=== PATIENT | female | born 2000 | race Hispanic/Latino ===

== ENCOUNTER 2022-06-09 23:16 | Emergency (ER) | payer SELFPAY ==
--- OUTSIDE RECORDS SUMMARY | 2022-06-09 23:20 | XMS REPORT | Continuity of Care Document ---
:[address] [facility] t Address [address] [place] [place] [address] Care Team Providers Name Role Phone Slim Brady Primary Care Physician [phone] Problems This patient has no known problems. Allergies, Adverse Reactions, Alerts This patient has no known allergies or adverse reactions. Medications Ordered Filled Start Stop Current Ordering Indication Dosage Frequency Signature Comments Components Source Medication Medication Date Date Medication? Clinician (SIG) Name Name Dose 2021-07 No Unknown 0-12 00:00: 00 Dose 2021-1 No Unknown 0-12 00:00: 00 Dose 2021-1 No Unknown 0-12 00:00: 00 Dose 2021-1 No Unknown 0-12 00:00: 00 Dose 2021-0 No Unknown 6-21 00:00: 00 Dose 2021-0 No Unknown 6-21 00:00: 00 Dose 2021-0 No Unknown 6-21 00:00: 00 Dose 2021-0 No Unknown 6-21 00:00: 00 Dose 2021-0 No Unknown 6-21 00:00: 00 doxycycline 2-0 No 1mg monohydrate 6-21 100 mg 00:00: capsule 00 Dose 2021-0 No Unknown 6-21 00:00: 00 doxycycline 2-0 No 1mg monohydrate 6-21 100 mg 00:00: capsule 00 Dose 2-0 No Unknown 6-21 00:00: 00 Dose 2-0 No Unknown 6-21 00:00: 00 Dose 2-0 No Unknown 6-21 00:00: 00 Dose 2021-0 No Unknown 6-21 00:00: 00 mupirocin 2 2021-0 No 1% % topical 5-25 ointment 00:00: 00 ketorolac 2-0 No 1mg 10 mg 5-25 tablet 00:00: 00 mupirocin 2 2-0 No 1% % topical 5-25 ointment 00:00: 00 ketorolac 2-0 No 1mg 10 mg 5-25 tablet 00:00: 00 sulfamethox 2-0 No 1mg azole 800 5-24 mg-trimetho 00:00: prim 160 mg 00 tablet sulfamethox 2-0 No 1mg azole 800 5-24 mg-trimetho 00:00: prim 160 mg 00 tablet Dose 2-0 No Unknown 5-24 00:00: 00 sulfamethox 2-0 No 1mg azole 800 5-24 mg-trimetho 00:00: prim 160 mg 00 tablet sulfamethox 2-0 No 1mg azole 800 5-24 mg-trimetho 00:00: prim 160 mg 00 tablet Dose 2-0 No Unknown 5-24 00:00: 00 ProAir HFA 1-0 No 12mcg/a 90 3-23 ctuatio mcg/actuati 00:00: n on aerosol 00 inhaler ProAir HFA 1-0 No 12mcg/a 90 3-23 ctuatio mcg/actuati 00:00: n on aerosol 00 inhaler loratadine 1-0 No 1mg 10 mg 3-23 tablet 00:00: 00 loratadine 1-0 No 1mg 10 mg 3-23 tablet 00:00: 00 ProAir HFA 1-0 No 12mcg/a 90 3-23 ctuatio mcg/actuati 00:00: n on aerosol 00 inhaler ProAir HFA 1-0 No 12mcg/a 90 3-23 ctuatio mcg/actuati 00:00: n on aerosol 00 inhaler loratadine 1-0 No 1mg 10 mg 3-23 tablet 00:00: 00 loratadine 1-0 No 1mg 10 mg 3-23 tablet 00:00: 00 Debrox 6.5 2019-0 No 5% % ear drops 2-26 00:00: 00 amoxicillin 2020-0 No 1mg 875 2-26 mg-potassiu 00:00: m 00 clavulanate 125 mg tablet Bromfed DM 2020-0 No 10mg/5 2 mg-30 2-26 mL mg-10 mg/5 00:00: mL oral 00 syrup Debrox 6.5 2019-0 No 5% % ear drops 2-26 00:00: 00 amoxicillin 2019-0 No 1mg 875 2-26 mg-potassiu 00:00: m 00 clavulanate 125 mg tablet Bromfed DM 2019-0 No 10mg/5 2 mg-30 2-26 mL mg-10 mg/5 00:00: mL oral 00 syrup Immunizations Ordered Immunization Filled Immunization Date Status Commen ts Source Name Name Adriane HYATT-Mikey 2020-08-27 Completed Vaccine 00:00:00 Adriane MCKEONID-Mikey 2020-08-27 Completed Vaccine 00:00:00 Adriane MCKEONID-19 2020-07-29 Completed Vaccine 00:00:00 Adriane MCKEONID-19 2020-07-29 Completed Vaccine 00:00:00 Vital Signs Vital Name Observation Time Observation Value Comments Source BP Systolic 2022-05-17 09:26:00 120 mm[Hg] BP Diastolic 2022-05-17 09:26:00 86 mm[Hg] Weight Measured 2022-05-17 09:26:00 181.20 pounds Height Measured 2022-05-17 09:26:00 62.00 inches Body Temperature 2022-05-17 09:26:00 97.80 degrees Heart Rate 2022-05-17 09:26:00 61.00 /min Respiratory Rate 2022-05-17 09:26:00 BP Systolic 2022-05-10 19:39:00 130 mm[Hg] BP Diastolic 2022-05-10 19:39:00 81 mm[Hg] Weight Measured 2022-05-10 19:39:00 183.40 pounds Height Measured 2022-05-10 19:39:00 62.00 inches Body Temperature 2022-05-10 19:39:00 97.70 degrees Heart Rate 2022-05-10 19:39:00 77.00 /min Respiratory Rate 2022-05-10 19:39:00 BP Systolic 2022-01-17 14:15:00 119 mm[Hg] BP Diastolic 2022-01-17 14:15:00 78 mm[Hg] Weight Measured 2022-01-17 14:15:00 177.40 pounds Height Measured 2022-01-17 14:15:00 62.00 inches Body Temperature 2022-01-17 14:15:00 98.10 degrees Heart Rate 2022-01-17 14:15:00 63.00 /min Respiratory Rate 2022-01-17 14:15:00 17.00 /min BP Systolic 2021-12-21 14:24:00 117 mm[Hg] BP Diastolic 2021-12-21 14:24:00 76 mm[Hg] Weight Measured 2021-12-21 14:24:00 179.20 pounds Height Measured 2021-12-21 14:24:00 62.00 inches Body Temperature 2021-12-21 14:24:00 98.20 degrees Heart Rate 2021-12-21 14:24:00 80.00 /min Respiratory Rate 2021-12-21 14:24:00 18.00 /min BP Systolic 2021-12-20 09:08:00 125 mm[Hg] BP Diastolic 2021-12-20 09:08:00 85 mm[Hg] Weight Measured 2021-12-20 09:08:00 177.00 pounds Height Measured 2021-12-20 09:08:00 62.00 inches Body Temperature 2021-12-20 09:08:00 98.20 degrees Heart Rate 2021-12-20 09:08:00 65.00 /min Respiratory Rate 2021-12-20 09:08:00 BP Systolic 2021-10-12 09:10:00 BP Diastolic 2021-10-12 09:10:00 Weight Measured 2021-10-12 09:10:00 180.00 pounds Height Measured 2021-10-12 09:10:00 62.00 inches Body Temperature 2021-10-12 09:10:00 Heart Rate 2021-10-12 09:10:00 Respiratory Rate 2021-10-12 09:10:00 BP Systolic 2021-07-22 09:21:00 BP Diastolic 2021-07-22 09:21:00 Weight Measured 2021-07-22 09:21:00 180.00 pounds Height Measured 2021-07-22 09:21:00 62.00 inches Body Temperature 2021-07-22 09:21:00 Heart Rate 2021-07-22 09:21:00 Respiratory Rate 2021-07-22 09:21:00 BP Systolic 2020-05-27 10:44:00 120 mm[Hg] BP Diastolic 2020-05-27 10:44:00 77 mm[Hg] Weight Measured 2020-05-27 10:44:00 199.40 pounds Height Measured 2020-05-27 10:44:00 62.00 inches Body Temperature 2020-05-27 10:44:00 96.90 degrees Heart Rate 2020-05-27 10:44:00 81.00 /min Respiratory Rate 2020-05-27 10:44:00 16.00 /min Heart Rate 2019-09-24 08:43:00 63.00 /min Respiratory Rate 2019-09-24 08:43:00 16.00 /min BP Systolic 2019-09-24 08:43:00 120 mm[Hg] BP Diastolic 2019-09-24 08:43:00 80 mm[Hg] Weight Measured 2019-09-24 08:43:00 191.40 pounds Height Measured 2019-09-24 08:43:00 62.00 inches Body Temperature 2019-09-24 08:43:00 98.00 degrees BP Systolic 2019-08-04 13:58:00 BP Diastolic 2019-08-04 13:58:00 Weight Measured 2019-08-04 13:58:00 192.40 pounds Height Measured 2019-08-04 13:58:00 62.00 inches Body Temperature 2019-08-04 13:58:00 97.50 degrees Heart Rate 2019-08-04 13:58:00 71.00 /min Respiratory Rate 2019-08-04 13:58:00 16.00 /min BP Systolic 2019-07-10 09:56:00 124 mm[Hg] BP Diastolic 2019-07-10 09:56:00 76 mm[Hg] Weight Measured 2019-07-10 09:56:00 192.00 pounds Height Measured 2019-07-10 09:56:00 62.00 inches Body Temperature 2019-07-10 09:56:00 98.40 degrees Heart Rate 2019-07-10 09:56:00 56.00 /min Respiratory Rate 2019-07-10 09:56:00 17.00 /min Procedures Procedure Date / Time Performed Performing Clinician Sourc e Ear Lavage 2019-09-24 00:00:00 Plan of Care Planned Activity Planned Date Details Comments Source Goal Plan of Care Note [code = 28574-8] Goal Plan of Care Note [code = 46671-0] Goal Plan of Care Note [code = 64340-0] Goal Plan of Care Note [code = 58035-9] Goal Plan of Care Note [code = 94103-2] Goal Plan of Care Note [code = 42467-8] Goal Plan of Care Note [code = 84953-2] Goal Plan of Care Note [code = 74824-1] Goal Plan of Care Note [code = 30988-6] Goal Plan of Care Note [code = 56421-8] Goal Plan of Care Note [code = 91269-6] Goal Plan of Care Note [code = 91197-8] Goal Plan of Care Note [code = 91745-9] Goal Plan of Care Note [code = 37995-7] Goal Plan of Care Note [code = 02579-8] Goal Plan of Care Note [code = 01066-9] Goal Plan of Care Note [code = 66214-0] Goal Plan of Care Note [code = 52543-0] Goal Plan of Care Note [code = 65860-3] Goal Plan of Care Note [code = 53865-3] Goal Plan of Care Note [code = 83214-8] Goal Plan of Care Note [code = 97934-2] Goal Plan of Care Note [code = 37743-2] Goal Plan of Care Note [code = 21850-6] Goal Plan of Care Note [code = 20373-8] Goal Plan of Care Note [code = 96571-6] Goal Plan of Care Note [code = 33709-4] Goal Plan of Care Note [code = 51449-9] Goal Plan of Care Note [code = 08133-2] Goal Plan of Care Note [code = 14636-3] Goal Plan of Care Note [code = 45314-8] Goal Plan of Care Note [code = 54231-5] Goal Plan of Care Note [code = 76247-8] Goal Plan of Care Note [code = 96598-9] Goal Plan of Care Note [code = 49391-4] Goal Plan of Care Note [code = 53176-4] Goal Plan of Care Note [code = 68085-4] Goal Plan of Care Note [code = 09933-5] Goal Plan of Care Note [code = 09631-8] Encounters Start End Encounter Admission Attending Care Care Encounter Source Date/Time Date/Time Type Type Clinicians Facility Department ID 2022-05-17 2022-05-17 Outpatient [facility] [id number] Arik 09:13:48 09:13:48 1019 F sIaiah 2022-05-17 2022-05-17 Outpatient [id number]- [id number] id [id number] 00:00:00 00:00:00 Visit [id number] 2022-05-10 Outpatient [facility] [id number] Arik 17:18:43 17:18:43 1012 F Isaiah 2022-05-10 2022-05-10 Outpatient [id number] 00:00:00 00:00:00 Visit [id number] Results Test Description Test Time Test Comments Results Result Comments Source LIVER (HEPATIC) FUNCTION PANEL 2019-08-05 00:00:00 Test Item Value Reference Range Interpretation Comme nts PROTEIN, TOTAL (test code = 2229) 7.6 G/DL ALBUMIN (test code = 2201) 4.9 G/DL BILIRUBIN, TOTAL (test code = 2207) 0.4 MG/DL BILIRUBIN, DIRECT (test code = 2021) 0.1 MG/DL ALKALINE PHOSPHATASE (test code = 2204) 100 U/L AST (test code = 2218) 31 U/L ALT (test code = 2219) 74 U/L LIVER (HEPATIC) FUNCTION [id number] 00:00:00 Test Item Value Reference Range Interpretation Comments PROTEIN, TOTAL (test code = 2229) 7.6 G/DL ALBUMIN (test code = 2201) 4.9 G/DL BILIRUBIN, TOTAL (test code = 2207) 0.4 MG/DL BILIRUBIN, DIRECT (test code = 0.1 MG/DL 2021) ALKALINE PHOSPHATASE (test code = 100 U/L 2204) AST (test code = 2218) 31 U/L ALT (test code = 2219) 74 U/L LIVER (HEPATIC) FUNCTION [id number] 00:00:00 Test Item Value Reference Range Interpretation Comments PROTEIN, TOTAL (test code = 2229) 7.6 G/DL ALBUMIN (test code = 2201) 4.9 G/DL BILIRUBIN, TOTAL (test code = 2207) 0.4 MG/DL BILIRUBIN, DIRECT (test code = 0.1 MG/DL 2021) ALKALINE PHOSPHATASE (test code = 100 U/L 220) AST (test code = 2218) 31 U/L ALT (test code = 2219) 74 U/L LIVER (HEPATIC) FUNCTION [id number] 00:00:00 Test Item Value Reference Range Interpretation Comments PROTEIN, TOTAL (test code = 2229) 7.6 G/DL ALBUMIN (test code = 2201) 4.9 G/DL BILIRUBIN, TOTAL (test code = 2207) 0.4 MG/DL BILIRUBIN, DIRECT (test code = 0.1 MG/DL 2021) ALKALINE PHOSPHATASE (test code = 100 U/L 2203) AST (test code = 2218) 31 U/L ALT (test code = 2219) 74 U/L LIVER (HEPATIC) FUNCTION [id number] 00:00:00 Test Item Value Reference Range Interpretation Comments PROTEIN, TOTAL (test code = 2229) 7.5 G/DL ALBUMIN (test code = 2201) 4.9 G/DL BILIRUBIN, TOTAL (test code = 2207) 0.5 MG/DL BILIRUBIN, DIRECT (test code = 0.1 MG/DL 2021) ALKALINE PHOSPHATASE (test code = 97 U/L 2203) AST (test code = 2218) 27 U/L ALT (test code = 2219) 69 U/L LIVER (HEPATIC) FUNCTION [id number] 00:00:00 Test Item Value Reference Range Interpretation Comments PROTEIN, TOTAL (test code = 2229) 7.5 G/DL ALBUMIN (test code = 2201) 4.9 G/DL BILIRUBIN, TOTAL (test code = 2207) 0.5 MG/DL BILIRUBIN, DIRECT (test code = 0.1 MG/DL 2021) ALKALINE PHOSPHATASE (test code = 97 U/L 2203) AST (test code = 2218) 27 U/L ALT (test code = 2219) 69 U/L LIVER (HEPATIC) FUNCTION [id number] 00:00:00 Test Item Value Reference Range Interpretation Comments PROTEIN, TOTAL (test code = 2229) 7.5 G/DL ALBUMIN (test code = 2201) 4.9 G/DL BILIRUBIN, TOTAL (test code = 2207) 0.5 MG/DL BILIRUBIN, DIRECT (test code = 0.1 MG/DL 2021) ALKALINE PHOSPHATASE (test code = 97 U/L 2203) AST (test code = 2218) 27 U/L ALT (test code = 2219) 69 U/L LIVER (HEPATIC) FUNCTION [id number] 00:00:00 Test Item Value Reference Range Interpretation Comments PROTEIN, TOTAL (test code = 2229) 7.5 G/DL ALBUMIN (test code = 2201) 4.9 G/DL BILIRUBIN, TOTAL (test code = 2207) 0.5 MG/DL BILIRUBIN, DIRECT (test code = 0.1 MG/DL 2021) ALKALINE PHOSPHATASE (test code = 97 U/L 2203) AST (test code = 2218) 27 U/L ALT (test code = 2219) 69 U/L COMPREHENSIVE METABOLIC [id number] 00:00:00 Test Item Value Reference Range Interpretation Comments GLUCOSE (test code = 2217) 109 MG/DL BUN (test code = 2208) 13 MG/DL CREATININE (test code = 2214) 0.60 MG/DL eGFR AMER. (test code 154 ML/MIN/1.73 = 44539) eGFR NON- AMER. (test 133 ML/MIN/1.73 code = 15449) CALC BUN/CREAT (test code = 22 RATIO 2235) SODIUM (test code = 2231) 141 MEQ/L POTASSIUM (test code = 2228) 4.4 MEQ/L CHLORIDE (test code = 2215) 103 MEQ/L CARBON DIOXIDE (test code = 25 MEQ/L 2205) CALCIUM (test code = 2209) 10.3 MG/DL PROTEIN, TOTAL (test code = 8.0 G/DL 2228) ALBUMIN (test code = 2201) 5.5 G/DL CALC GLOBULIN (test code = 2.5 G/DL 2239) CALC A/G RATIO (test code = 2.2 RATIO 2234) BILIRUBIN, TOTAL (test code = 0.3 MG/DL 2206) ALKALINE PHOSPHATASE (test 102 U/L code = 2204) AST (test code = 2218) 36 U/L ALT (test code = 2219) 86 U/L COMPREHENSIVE METABOLIC [id number] 00:00:00 Test Item Value Reference Range Interpretation Comments GLUCOSE (test code = 2217) 109 MG/DL BUN (test code = 2208) 13 MG/DL CREATININE (test code = 2214) 0.60 MG/DL eGFR AMER. (test code 154 ML/MIN/1.73 = 74447) eGFR NON- AMER. (test 133 ML/MIN/1.73 code = 76081) CALC BUN/CREAT (test code = 22 RATIO 2235) SODIUM (test code = 2231) 141 MEQ/L POTASSIUM (test code = 2228) 4.4 MEQ/L CHLORIDE (test code = 2215) 103 MEQ/L CARBON DIOXIDE (test code = 25 MEQ/L 2205) CALCIUM (test code = 2209) 10.3 MG/DL PROTEIN, TOTAL (test code = 8.0 G/DL 2228) ALBUMIN (test code = 2201) 5.5 G/DL CALC GLOBULIN (test code = 2.5 G/DL 2240) CALC A/G RATIO (test code = 2.2 RATIO 2234) BILIRUBIN, TOTAL (test code = 0.3 MG/DL 2206) ALKALINE PHOSPHATASE (test 102 U/L code = 2204) AST (test code = 2218) 36 U/L ALT (test code = 2219) 86 U/L LIPID [id number] 00:00:00 Test Item Value Reference Range Interpretation Comments CHOLESTEROL (test code = 2210) 211 MG/DL TRIGLYCERIDES (test code = 2232) 143 MG/DL HDL CHOLESTEROL (test code = 2220) 35 MG/DL CALC LDL CHOL (test code = 2237) 147 MG/DL RISK RATIO LDL/HDL (test code = 4.21 RATIO 2238) LIPID [id number] 00:00:00 Test Item Value Reference Range Interpretation Comments CHOLESTEROL (test code = 2210) 211 MG/DL TRIGLYCERIDES (test code = 2232) 143 MG/DL HDL CHOLESTEROL (test code = 2220) 35 MG/DL CALC LDL CHOL (test code = 2237) 147 MG/DL RISK RATIO LDL/HDL (test code = 4.21 RATIO 2238) CBC W/AUTO [id number] 00:00:00 Test Item Value Reference Range Interpretation Comments WBC (test code = 1001) 6.1 K/UL RBC (test code = 1002) 5.15 M/UL HEMOGLOBIN (test code = 1003) 15.1 G/DL HEMATOCRIT (test code = 1004) 44.2 % MCV (test code = 1005) 85.8 fL MCH (test code = 1006) 29.3 PG MCHC (test code = 1007) 34.2 G/DL RDW (test code = 1038) 12.1 % NEUTROPHILS (test code = 1008) 58.6 % LYMPHOCYTES (test code = 1010) 31.0 % MONOCYTES (test code = 1011) 4.3 % EOSINOPHILS (test code = 1012) 5.6 % BASOPHILS (test code = 1013) 0.5 % PLATELET COUNT (test code = 1015) 308 K/UL CBC W/AUTO [id number] 00:00:00 Test Item Value Reference Range Interpretation Comments WBC (test code = 1001) 6.1 K/UL RBC (test code = 1002) 5.15 M/UL HEMOGLOBIN (test code = 1003) 15.1 G/DL HEMATOCRIT (test code = 1004) 44.2 % MCV (test code = 1005) 85.8 fL MCH (test code = 1006) 29.3 PG MCHC (test code = 1007) 34.2 G/DL RDW (test code = 1038) 12.1 % NEUTROPHILS (test code = 1008) 58.6 % LYMPHOCYTES (test code = 1010) 31.0 % MONOCYTES (test code = 1011) 4.3 % EOSINOPHILS (test code = 1012) 5.6 % BASOPHILS (test code = 1013) 0.5 % PLATELET COUNT (test code = 1015) 308 K/UL CBC W/AUTO [id number] 00:00:00 Test Item Value Reference Range Interpretation Comments WBC (test code = 1001) 6.1 K/UL RBC (test code = 1002) 5.15 M/UL HEMOGLOBIN (test code = 1003) 15.1 G/DL HEMATOCRIT (test code = 1004) 44.2 % MCV (test code = 1005) 85.8 fL MCH (test code = 1006) 29.3 PG MCHC (test code = 1007) 34.2 G/DL RDW (test code = 1038) 12.1 % NEUTROPHILS (test code = 1008) 58.6 % LYMPHOCYTES (test code = 1010) 31.0 % MONOCYTES (test code = 1011) 4.3 % EOSINOPHILS (test code = 1012) 5.6 % BASOPHILS (test code = 1013) 0.5 % PLATELET COUNT (test code = 1015) 308 K/UL HEMOGLOBIN [id number] 00:00:00 Test Item Value Reference Range Interpretation Comments HEMOGLOBIN A1c (test code = 63543) 5.6 % HEMOGLOBIN [id number] 00:00:00 Test Item Value Reference Range Interpretation Comments HEMOGLOBIN A1c (test code = 21332) 5.6 % HEMOGLOBIN [id number] 00:00:00 Test Item Value Reference Range Interpretation Comments HEMOGLOBIN A1c (test code = 24645) 5.6 % [id number] 00:00:00 Test Item Value Reference Range Interpretation Comments TSH, THIRD GENERATION (test code 3.170 UIU/ML = 2821) [id number] 00:00:00 Test Item Value Reference Range Interpretation Comments TSH, THIRD GENERATION (test code 3.170 UIU/ML = 2821) [id number] 00:00:00 Test Item Value Reference Range Interpretation Comments TSH, THIRD GENERATION (test code 3.170 UIU/ML = 2821) [id number] 00:00:00 Test Item Value Reference Range Interpretation Comments PROLACTIN (test code = 2800) 13.4 NG/ML [id number] 00:00:00 Test Item Value Reference Range Interpretation Comments PROLACTIN (test code = 2800) 13.4 NG/ML FSH + LH [id number] 00:00:00 Test Item Value Reference Range Interpretation Comments FOLLICLE STIM HORMONE (test code = 5.2 IU/L 2700) LUTEINIZING HORMONE (test code = 9.9 IU/L 2776) FSH + LH [id number] 00:00:00 Test Item Value Reference Range Interpretation Comments FOLLICLE STIM HORMONE (test code = 5.2 IU/L 2700) LUTEINIZING HORMONE (test code = 9.9 IU/L 2776) COMPREHENSIVE METABOLIC [id number] 00:00:00 Test Item Value Reference Range Interpretation Comments GLUCOSE (test code = 2217) 109 MG/DL BUN (test code = 2208) 13 MG/DL CREATININE (test code = 2214) 0.60 MG/DL eGFR AMER. (test code 154 ML/MIN/1.73 = 39295) eGFR NON- AMER. (test 133 ML/MIN/1.73 code = 31099) CALC BUN/CREAT (test code = 22 RATIO 2235) SODIUM (test code = 2231) 141 MEQ/L POTASSIUM (test code = 2228) 4.4 MEQ/L CHLORIDE (test code = 2215) 103 MEQ/L CARBON DIOXIDE (test code = 25 MEQ/L 2205) CALCIUM (test code = 2209) 10.3 MG/DL PROTEIN, TOTAL (test code = 8.0 G/DL 2228) ALBUMIN (test code = 2201) 5.5 G/DL CALC GLOBULIN (test code = 2.5 G/DL 2239) CALC A/G RATIO (test code = 2.2 RATIO 2234) BILIRUBIN, TOTAL (test code = 0.3 MG/DL 2206) ALKALINE PHOSPHATASE (test 102 U/L code = 2204) AST (test code = 2218) 36 U/L ALT (test code = 2219) 86 U/L COMPREHENSIVE METABOLIC [id number] 00:00:00 Test Item Value Reference Range Interpretation Comments GLUCOSE (test code = 2217) 109 MG/DL BUN (test code = 2208) 13 MG/DL CREATININE (test code = 2214) 0.60 MG/DL eGFR AMER. (test code 154 ML/MIN/1.73 = 68217) eGFR NON- AMER. (test 133 ML/MIN/1.73 code = 38854) CALC BUN/CREAT (test code = 22 RATIO 2235) SODIUM (test code = 2231) 141 MEQ/L POTASSIUM (test code = 2228) 4.4 MEQ/L CHLORIDE (test code = 2215) 103 MEQ/L CARBON DIOXIDE (test code = 25 MEQ/L 220) CALCIUM (test code = 2209) 10.3 MG/DL PROTEIN, TOTAL (test code = 8.0 G/DL 2228) ALBUMIN (test code = 2201) 5.5 G/DL CALC GLOBULIN (test code = 2.5 G/DL 2240) CALC A/G RATIO (test code = 2.2 RATIO 2234) BILIRUBIN, TOTAL (test code = 0.3 MG/DL 2206) ALKALINE PHOSPHATASE (test 102 U/L code = 2204) AST (test code = 2218) 36 U/L ALT (test code = 2219) 86 U/L LIPID [id number] 00:00:00 Test Item Value Reference Range Interpretation Comments CHOLESTEROL (test code = 2210) 211 MG/DL TRIGLYCERIDES (test code = 2232) 143 MG/DL HDL CHOLESTEROL (test code = 2220) 35 MG/DL CALC LDL CHOL (test code = 2237) 147 MG/DL RISK RATIO LDL/HDL (test code = 4.21 RATIO 2238) LIPID [id number] 00:00:00 Test Item Value Reference Range Interpretation Comments CHOLESTEROL (test code = 2210) 211 MG/DL TRIGLYCERIDES (test code = 2232) 143 MG/DL HDL CHOLESTEROL (test code = 2220) 35 MG/DL CALC LDL CHOL (test code = 2237) 147 MG/DL RISK RATIO LDL/HDL (test code = 4.21 RATIO 2238) CBC W/AUTO [id number] 00:00:00 Test Item Value Reference Range Interpretation Comments WBC (test code = 1001) 6.1 K/UL RBC (test code = 1002) 5.15 M/UL HEMOGLOBIN (test code = 1003) 15.1 G/DL HEMATOCRIT (test code = 1004) 44.2 % MCV (test code = 1005) 85.8 fL MCH (test code = 1006) 29.3 PG MCHC (test code = 1007) 34.2 G/DL RDW (test code = 1038) 12.1 % NEUTROPHILS (test code = 1008) 58.6 % LYMPHOCYTES (test code = 1010) 31.0 % MONOCYTES (test code = 1011) 4.3 % EOSINOPHILS (test code = 1012) 5.6 % BASOPHILS (test code = 1013) 0.5 % PLATELET COUNT (test code = 1015) 308 K/UL CBC W/AUTO [id number] 00:00:00 Test Item Value Reference Range Interpretation Comments WBC (test code = 1001) 6.1 K/UL RBC (test code = 1002) 5.15 M/UL HEMOGLOBIN (test code = 1003) 15.1 G/DL HEMATOCRIT (test code = 1004) 44.2 % MCV (test code = 1005) 85.8 fL MCH (test code = 1006) 29.3 PG MCHC (test code = 1007) 34.2 G/DL RDW (test code = 1038) 12.1 % NEUTROPHILS (test code = 1008) 58.6 % LYMPHOCYTES (test code = 1010) 31.0 % MONOCYTES (test code = 1011) 4.3 % EOSINOPHILS (test code = 1012) 5.6 % BASOPHILS (test code = 1013) 0.5 % PLATELET COUNT (test code = 1015) 308 K/UL CBC W/AUTO [id number] 00:00:00 Test Item Value Reference Range Interpretation Comments WBC (test code = 1001) 6.1 K/UL RBC (test code = 1002) 5.15 M/UL HEMOGLOBIN (test code = 1003) 15.1 G/DL HEMATOCRIT (test code = 1004) 44.2 % MCV (test code = 1005) 85.8 fL MCH (test code = 1006) 29.3 PG MCHC (test code = 1007) 34.2 G/DL RDW (test code = 1038) 12.1 % NEUTROPHILS (test code = 1008) 58.6 % LYMPHOCYTES (test code = 1010) 31.0 % MONOCYTES (test code = 1011) 4.3 % EOSINOPHILS (test code = 1012) 5.6 % BASOPHILS (test code = 1013) 0.5 % PLATELET COUNT (test code = 1015) 308 K/UL HEMOGLOBIN [id number] 00:00:00 Test Item Value Reference Range Interpretation Comments HEMOGLOBIN A1c (test code = 70645) 5.6 % HEMOGLOBIN [id number] 00:00:00 Test Item Value Reference Range Interpretation Comments HEMOGLOBIN A1c (test code = 32254) 5.6 % HEMOGLOBIN [id number] 00:00:00 Test Item Value Reference Range Interpretation Comments HEMOGLOBIN A1c (test code = 27444) 5.6 % [id number] 00:00:00 Test Item Value Reference Range Interpretation Comments TSH, THIRD GENERATION (test code 3.170 UIU/ML = 2821) [id number] 00:00:00 Test Item Value Reference Range Interpretation Comments TSH, THIRD GENERATION (test code 3.170 UIU/ML = 2821) [id number] 00:00:00 Test Item Value Reference Range Interpretation Comments TSH, THIRD GENERATION (test code 3.170 UIU/ML = 2821) [id number] 00:00:00 Test Item Value Reference Range Interpretation Comments PROLACTIN (test code = 2800) 13.4 NG/ML [id number] 00:00:00 Test Item Value Reference Range Interpretation Comments PROLACTIN (test code = 2800) 13.4 NG/ML FSH + LH [id number] 00:00:00 Test Item Value Reference Range Interpretation Comments FOLLICLE STIM HORMONE (test code = 5.2 IU/L 2700) LUTEINIZING HORMONE (test code = 9.9 IU/L 2776) FSH + LH [id number] 00:00:00 Test Item Value Reference Range Interpretation Comments FOLLICLE STIM HORMONE (test code = 5.2 IU/L 2700) LUTEINIZING HORMONE (test code = 9.9 IU/L 2776)
[2022-06-09 23:36] LABS: Urine Blood 1+ (Negative); Urine Glucose Negative (Negative); Urine Protein Negative (Negative)
--- NOTE | 2022-06-10 01:04 | ER ---
Nurse's Notes [facility] Name: Coleen Michaels Age: 21 yrs Sex: Female : 2000 Arrival Date: 06/09/2022 Time: 23:20 Bed IW8 Private MD: Diagnosis: Low back pain;Dysuria Presentation: 06/09 23:23 Chief complaint: Pain with urination x 1 month, spotty bright red vaginal bleeding x 2 hb weeks, low back pain x 3 days. Coronavirus screen: At this time, the client does not indicate any symptoms associated with coronavirus-19. Ebola Screen: No symptoms or risks identified at this time. Initial Sepsis Screen: Does the patient meet any 2 criteria? No. Patient's initial sepsis screen is negative. Does the patient have a suspected source of infection? No. Patient's initial sepsis screen is negative. Risk Assessment: Do you want to hurt yourself or someone else? Patient reports no desire to harm self or others. Onset of symptoms was April 2022. 23:23 Method Of Arrival: Ambulatory 23:23 Acuity: NADINE 3 hb Triage Assessment: 06/10 00:30 General: Appears in no apparent distress. Behavior is appropriate for age. ke1 Musculoskeletal: Range of motion: intact in all extremities. Historical: - Allergies: 06/09 23:25 No Known Allergies; hb - Home Meds: 23:25 None [Active]; hb - PMHx: 23:25 None; hb - PSHx: 23:25 None; hb - Immunization history:: Client reports having NOT received the Covid vaccine. - Family history:: not pertinent. - Social history:: Smoking status: Patient denies any tobacco usage or history of. Screenin/12 00:30 Abuse screen: Denies threats or abuse. Nutritional screening: No deficits noted. ke1 Tuberculosis screening: No symptoms or risk factors identified. Fall Risk None identified. Assessment: 01:00 Neuro: Level of Consciousness is awake, alert, Oriented to person, place, time, ke1 situation. 01:15 Pain: Complains of pain in back Pain does not radiate. Pain currently is 7 out of 10 on ke1 a pain scale. at worst was 10 out of 10 on a pain scale. level that patient reports is acceptable is 5 out of 10 on a pain scale. Vital Signs: 06/09 23:23 BP 130 / 98; Pulse 66; Resp 16; Temp 97.7; Pulse Ox 100% on R/A; Weight 77.11 kg; hb Height 5 ft. (152.40 cm); Pain 8/10; 23:23 Body Mass Index 33.20 (77.11 kg, 152.40 cm) hb ED Course: 23:20 Patient arrived in ED. bp1 23:25 Triage completed. hb 23:25 Arm band placed on. hb 23:36 Ervin Marie MD is Attending Physician. debbie 23:39 Urine --Ancillary (enter results) Sent. hb 06/10 00:17 Frida Putnam, RN is Primary Nurse. ke1 00:30 Bed in low position. Call light in reach. ke1 01:00 US Transvaginal Ob In Process Unspecified. EDMS 01:03 John Mitchell MD is Referral Physician. debbie Administered Medications: 01:17 Not Given (Physician Discretion): NS 0.9% 1000 ml IV at 1 bolus Per protocol; 1000 mL ke1 bolus 01:21 Drug: Ketorolac 60 mg Route: IM; Site: right deltoid; ke1 Outcome: 01:03 Discharge ordered by . debbie 01:30 Patient left the ED. [facility] Signatures: Dispatcher [employer] EDMN Ervin Marie MD MD cha Baxter, Heather, RN RN Carla Coates [facility] Frida Putnam, KATE RN ke1
--- NOTE | 2022-06-10 01:04 | EDPHYS ---
Physician Documentation [facility] Name: Coleen Michaels Age: 21 yrs Sex: Female : 2000 Arrival Date: 06/09/2022 Time: 23:20 Bed IW8 Private MD: ED Physician Ervin Marie HPI: 06/10 00:58 This 21 yrs old Female presents to ER via Ambulatory with complaints of Back debbie Pain. 00:58 The patient presents with pain that is acute, with no known mechanism of injury, and debbie decreased range of motion. The symptoms are located in the low back. Onset: The symptoms/episode began/occurred 2 day(s) ago. The pain does not radiate. Associated signs and symptoms: The patient has no apparent associated signs or symptoms. The problem was sustained without known cause. Modifying factors: The patient symptoms are alleviated by nothing, the patient symptoms are aggravated by nothing. Severity of symptoms: At their worst the symptoms were mild, in the emergency department the symptoms are unchanged. The patient has not experienced similar symptoms in the past. Historical: - Allergies: 06/09 23:25 No Known Allergies; hb - Home Meds: 23:25 None [Active]; hb - PMHx: 23:25 None; hb - PSHx: 23:25 None; hb - Immunization history:: Client reports having NOT received the Covid vaccine. - Family history:: not pertinent. - Social history:: Smoking status: Patient denies any tobacco usage or history of. ROS: 06/10 00:58 Constitutional: Negative for fever, chills, and weight loss, Eyes: Negative for injury, debbie pain, redness, and discharge, ENT: Negative for injury, pain, and discharge, Neck: Negative for injury, pain, and swelling, Cardiovascular: Negative for chest pain, palpitations, and edema, Respiratory: Negative for shortness of breath, cough, wheezing, and pleuritic chest pain, Abdomen/GI: Negative for abdominal pain, nausea, vomiting, diarrhea, and constipation, MS/Extremity: Negative for injury and deformity, Skin: Negative for injury, rash, and discoloration, Neuro: Negative for headache, weakness, numbness, tingling, and seizure, Psych: Negative for depression, anxiety, suicide ideation, homicidal ideation, and hallucinations, Allergy/Immunology: Negative for hives, rash, and allergies, Endocrine: Negative for neck swelling, polydipsia, polyuria, polyphagia, and marked weight changes, Hematologic/Lymphatic: Negative for swollen nodes, abnormal bleeding, and unusual bruising. Constitutional: Negative for body aches, chills, fatigue, fever, malaise, poor PO intake, weight loss. Back: Positive for decreased range of motion, pain with movement, Negative for injury or acute deformity. Exam: 00:58 Constitutional: This is a well developed, well nourished patient who is awake, alert, debbie and in no acute distress. Head/Face: Normocephalic, atraumatic. Eyes: Pupils equal round and reactive to light, extra-ocular motions intact. Lids and lashes normal. Conjunctiva and sclera are non-icteric and not injected. Cornea within normal limits. Periorbital areas with no swelling, redness, or edema. ENT: Nares patent. No nasal discharge, no septal abnormalities noted. Tympanic membranes are normal and external auditory canals are clear. Oropharynx with no redness, swelling, or masses, exudates, or evidence of obstruction, uvula midline. Mucous membranes moist. Neck: Trachea midline, no thyromegaly or masses palpated, and no cervical lymphadenopathy. Supple, full range of motion without nuchal rigidity, or vertebral point tenderness. No Meningismus. Chest/axilla: Normal chest wall appearance and motion. Nontender with no deformity. No lesions are appreciated. Cardiovascular: Regular rate and rhythm with a normal S1 and S2. No gallops, murmurs, or rubs. Normal PMI, no JVD. No pulse deficits. Respiratory: Lungs have equal breath sounds bilaterally, clear to auscultation and percussion. No rales, rhonchi or wheezes noted. No increased work of breathing, no retractions or nasal flaring. Abdomen/GI: Soft, non-tender, with normal bowel sounds. No distension or tympany. No guarding or rebound. No evidence of tenderness throughout. Female : Normal external genitalia. Skin: Warm, dry with normal turgor. Normal color with no rashes, no lesions, and no evidence of cellulitis. MS/ Extremity: Pulses equal, no cyanosis. Neurovascular intact. Full, normal range of motion. Neuro: Awake and alert, GCS 15, oriented to person, place, time, and situation. Cranial nerves II-XII grossly intact. Motor strength 5/5 in all extremities. Sensory grossly intact. Cerebellar exam normal. Normal gait. Psych: Awake, alert, with orientation to person, place and time. Behavior, mood, and affect are within normal limits. 00:58 Back: pain, that is very mild, that is mild, ROM is painful, with flexion, with extension, normal spinal alignment noted, CVA tenderness, is absent, muscle spasm, is not present. Vital Signs: 06/09 23:23 BP 130 / 98; Pulse 66; Resp 16; Temp 97.7; Pulse Ox 100% on R/A; Weight 77.11 kg; hb Height 5 ft. (152.40 cm); Pain 8/10; 23:23 Body Mass Index 33.20 (77.11 kg, 152.40 cm) hb MDM: 23:36 Patient medically screened. [facility] 06/10 01:01 Differential diagnosis: Fatigue Obesity Osteoarthritis ruptured disc, Scoliosis sprain. [facility] Data reviewed: vital signs, nurses notes, lab test result(s), radiologic studies, ultrasound. Data interpreted: night monitor: rate is 66 beats/min, rhythm is regular, Pulse oximetry: on room air is 100 %. Counseling: I had a detailed discussion with the patient and/or guardian regarding: the historical points, exam findings, and any diagnostic results supporting the discharge/admit diagnosis, the presence of at least one elevated blood pressure reading (>120/80) during this emergency department visit, lab results, radiology results, the need for outpatient follow up, for definitive care, a family practitioner. 06/09 23:36 Order name: Urine Dipstick-Ancillary; Complete Time: 00:17 EDMS 06/09 23:39 Order name: Urine --Ancillary (enter results); Complete Time: 00:17 mw2 06/09 23:36 Order name: US Transvaginal Ob [facility] 06/09 23:36 Order name: Labs collected and sent [facility] 06/09 23:36 Order name: Urine Dipstick-Ancillary (obtain specimen); Complete Time: 23:38 [facility] 06/09 23:36 Order name: Urine Test (obtain specimen); Complete Time: 23:38 [facility] Administered Medications: 01:17 Not Given (Physician Discretion): NS 0.9% 1000 ml IV at 1 bolus Per protocol; 1000 mL ke1 bolus 01:21 Drug: Ketorolac 60 mg Route: IM; Site: right deltoid; ke1 Disposition Summary: 06/10/22 01:03 Discharge Ordered Location: Home [facility] Problem: new debbie Symptoms: have improved debbie Condition: Stable debbie Diagnosis - Low back pain debbie - Dysuria debbie Followup: debbie - With: Private Physician - When: 2 - 3 days - Reason: Recheck today's complaints, Continuance of care, Re-evaluation by your physician Followup: debbie - With: John Mitchell MD - When: 2 - 3 days - Reason: Recheck today's complaints, Continuance of care, Re-evaluation by your physician Discharge Instructions: - Discharge Summary Sheet debbie - Acute Back Pain, Adult debbie - Dysuria debbie - Musculoskeletal Pain [facility] Forms: - Medication Reconciliation Form [facility] - Thank You Letter debbie - Antibiotic Education debbie - Prescription Opioid Use debbie - Work release form ke1 Prescriptions: - Cipro 250 mg Oral Tablet - take 1 tablet by ORAL route every 12 hours; 10 tablet; Refills: 0, Product [facility] Selection Permitted - Ibuprofen 600 mg Oral Tablet - take 1 tablet by ORAL route every 6 hours As needed take with food; 30 tablet; debbie Refills: 0, Product Selection Permitted Signatures: Dispatcher [employer] Ervin Ceballos MD MD cha Baxter, Heather, RN KATE Frida Putnam RN RN ke1 Corrections: (The following items were deleted from the chart) 01:26 06/09 23:36 IV Saline Lock ordered. debbie ke1 06/10 01:26 06/09 23:36 NPO ordered. debbie ke1
[2022-06-10] MEDS ORDERED: KETOROLAC 30 MG/ML INJ ONE (01:08)
[2022-06-10 03:02] VITALS: BP 130/98; TEMP 97.7; O2SAT 100
--- NOTE | 2022-06-12 11:06 | RAD REPORT ---
EXAM DESCRIPTION: US - Transvaginal OB - 06/10/2022 12:58 am CLINICAL HISTORY: 21 years Female ABD CRAMPING, , LMP: 05/15/2022, EGA: 3 weeks 5 days, MITCHEL: 02/19/2023 TECHNIQUE: Sonographic imaging of the pelvis was performed transvaginally on 06/10/2022 at 12: 26 AM COMPARISON: None FINDINGS: The uterus is normal in size and configuration and measures: 7.2 x 3.6 x 4.6 cm. The end ometrial echo complex measures 1.0 cm in diameter. There is no evidence of an intrauterine gestationa l sac. This may be due to the early gestational age of 3 weeks, 5 days. There are a couple of small c ervical nabothian cysts. The right ovary is grossly normal in size, shape and echogenicity and measures: 3.3 x 2.6 x 3.6 cm. There is normal pulsed and color Doppler flow to the right ovary. There are normal follicular change s of the right ovary. There are no right adnexal mass lesions.. The left ovary is grossly normal in size, shape and echogenicity and measures: 3.1 x 3.4 x 2.2 cm. There is normal pulsed and color Doppler flow to the left ovary. There are normal follicular changes of the left ovary. There are no left adnexal mass lesions.. There is no free fluid in the pelvis. IMPRESSION: 1. No evidence of an intrauterine gestational sac at this time likely due to the early g estational age of the suspected . 2. Grossly normal sonographic evaluation of the ovaries. 3. No evidence of free fluid or complex adnexal mass lesion. Electronically signed by: Silvia Miles DO 06/10/2022 1:31 AM BROADCAST ENGINEER Due to temporary technical issues with the PACS/Fluency reporting system, reports are being signed by the in house radiologists without review as a courtesy to insure prompt reporting. The interpreting radiologist is fully responsible for the content of the report.
== END 2022-06-10 01:30 | disposition home or self-care (01) ==
LOC: ER 23:16
DX: M54.50 Low back pain, unspecified (principal); R30.0 Dysuria
CPT/HCPCS: 76817; 81003; 81025; 96372; 99283